=== PATIENT | female | born 1950 | race Caucasian/White ===

== ENCOUNTER → 2023-05-12 10:21 | Outpatient (REF) | payer MEDICARE, BC, SELFPAY | LOC: RAD 10:21 | PROVIDERS: ATTENDING PHYSICIAN Surgery; FAMILY PHYSICIAN Family Medicine | DX: K44.9 Diaphragmatic hernia without obstruction or gangrene (principal) | CPT/HCPCS: 74221; 74246 ==

== ENCOUNTER 2023-11-03 18:57 | Emergency (ER) | payer MEDICARE, BC, SELFPAY ==
[2023-11-03 18:59] VITALS: BP 162/80
[2023-11-03 20:00] VITALS: BP 148/48
--- NOTE | 2023-11-03 20:29 | ED.GENMED ---
History of Present Illness
General
Chief Complaint: Musculo-Skeletal Complaint
Source: patient
Exam Limitations: none
Time Seen by Provider: 11/03/23 20:06
Nursing documentation reviewed up to this point in time: agreed with
History of Present Illness
History of Present Illness:
73 y/o F with h/o afib s/p ablation, on eliquis, remote L leg dvt 30 yeras ago on eliquis, chronic leg edema in the left leg
has had posterior knee pain x 5 days ,no inciting injury and then today stepped onto a chair and felt a snap in the back of he knee
she has pain with weight bearing
says if she hunches over she can walk slowly
she is able to flex and extend
she has no appreciable swelling, numness/tingling/weakness
took motrin at 2 pm prior to the injury for the pain she was having over the past few days
Past History
Past History
ED Past Medical History: Arrthythmia, HTN and Hypercholesterolemia
ED Past Surgical History: Cardiac (ablation) and Other (hernia)
Social History
Tobacco: Non-smoker
Review of Systems
Review of Systems
Allergies reviewed?: Yes
All Other Systems: Not applicable
Phy Exam
Physical Exam
Physical Exam:
GENERAL: Alert , in no apparent distress
EYE: pupils equal and reactive
NECK: Supple
ENT: o/p clr, mmm.
CARDIAC: Regular rate and rhythm .
LUNGS: Clear breath sounds bilaterally, no acute respiratory distress, no wheezes/rales/rhonchi
ABDOMEN: Soft, without focal tenderness, no r/g, no cvat, normal bowel sounds
NEUROLOGICAL: Alert and oriented, no focal neuro deficits
SKIN: Warm and dry, skin intact.
MUSCULOSKELETAL: L leg is edematous, when compared to R side wih multiple varicosities
the knee does also look swollen, ? possibly effusion but nontender
able to flex 45 degrees, straight leg raise normal
neg ant/posterior drawer
no laxity with varus and valgus stress
calf is swollen but not tender
some PVD skin changes lower leg
normal pulse
hip normal
PSYCH: Normal and appropriate interaction.
Course
Orders/Labs/Results
Orders:
Orders
11/03/23 19:01
Knee, Left 4 or More Views [CR Knee - Left 4 Or More View*] Urgent
Comment:
Reason For Exam: pain
11/03/23 20:28
Acetaminophen [Tylenol] 650 mg PO NOW STA
Venous Doppler Lwr Ext Left [US Periph Venous LOWER Ext LT] Urgent
Comment: chronic swelling, dvt in the remote past, on eliqu
Reason For Exam: posterior knee pain, eval bakers cyst
Vital Signs
Initial and Last Documented VS:
Initial Vital Signs
Temp Pulse Resp BP Pulse Ox
98.9 F 66 18 162/80 99
11/03/23 18:59 11/03/23 18:59 11/03/23 18:59 11/03/23 18:59 11/03/23 18:59
Last Documented Vital Signs
Temp Pulse Resp BP Pulse Ox
98.9 F 66 18 157/64 99
11/03/23 18:59 11/03/23 18:59 11/03/23 18:59 11/03/23 22:33 11/03/23 18:59
MDM/Problems Addressed
Differential Diagnosis Includes:
knee sprain, patellar tendon injury, quad rupture, ligamenouts injury
MDM/Problems Addressed:
73 y/o F
has been having somd mild pain in the L knee for about 5 days and then tonight when she stood up on to a chair with that foot she felt a snap in the back of her knee
no appreciated swelilng but she alwyas has edema int he leg from chronic dvt
anticoagulated
no numbness/tingling/wekaness
pain is wosre with weight bearing
she feels better if she bends over at her hhip slightly she can walk on it
she has no trouble with straight leg raise in the bed, and no laxity on stress testing
xray indep reviewed, mild DJD
though compliiant with eliquis, suspect possible bakers cyst
US was neg for bakers cyst an dneg for dvt
will micah wrap
wlaker
f/u with ortho recommends
nsaids
*Critical Care Note
Total Time (30-74mins, 75-104mins- exclusive of procedures): Not Applicable
ED Attending Note
-
Portions of this chart may have been created with voice recognition software.� Occasional wrong word or��sound alike� substitutions may have occurred due to the inherent limitations of voice recognition software.
Discharge Plan
Departure
Patient Disposition: Home (Routine Discharge)
Date of Disposition: 11/03/23
Time of Disposition: 21:52
Patient with high blood pressure during this ER visit?: No
Condition: Fair
Covid-19: Not Applicable
Discharge Problem:
Acute knee pain
Instructions: Knee Pain (DC)
Prescriptions:
No Action
atorvastatin 40 MG tablet
40 mg PO QPM
lisinopril 10 MG tablet
10 mg PO DAILY
ranitidine HCl 150 MG capsule
150 mg PO BID
cholecalciferol (vitamin D3) [Vitamin D3] 1,000 UNIT capsule
1,000 unit PO DAILY
metoprolol tartrate 25 MG tablet
25 mg PO DAILY
jdcymzdy-srr-WK-lycopen-lutein [Centrum Silver] 1 EACH tablet
1 ea PO DAILY
omega 3-ylw-zpv-fish oil 1 EACH capsule
1,000 mg PO BID
turmeric root extract 500 MG capsule
500 mg PO BID
resveratrol 50 MG capsule
75 mg PO DAILY
apixaban [Eliquis] 5 MG tablet
5 mg PO BID
coenzyme Q10 50 MG tablet,chewable
100 mg PO BID
Black Current Oil Fackler 3-6
1,000 mg PO QPM
Sea [place]orn Fackler 7
500 mg PO BID
cephalexin 500 mg capsule
500 mg PO QID 10 Days Qty: 40 0RF
Referrals:
Louie Lora MD [Family Provider] -
Alex Fuentes MD [Active] - Follow up in 2-3 days ([facility])
Josue Hancock MD [Active] - Follow up in 5-7 days (ortho)
Activity Restrictions/Additional Instructions:
WE AREN'T SURE THE CAUSE OF YOUR KNEE PAIN
YOUR XRAYS SHOWED NO FRACTURES AND YOUR DOPPLER STUDY SHOWED NO DVT AND NO CYSTS
TRY MOTRIN EVERY 8 HOURS NEEDED
TYLENOL EVERY 6 HOURS NEEDED
ICE OFF AND ON
USE THE MICAH WRAP WHILE AWAKE, TAKE IT OFF AT NIGHT
WALKER TO HELP YOU
FOLLOW UP WITH ORTHOPEDICS FOR FURTHER WORK UP
Interventions
Interventions:
*Risk Screen - Suicide Last Done: 11/03/23 18:59
*General Assessment Last Done: 11/03/23 18:59
*Neglect/Abuse Screening Last Done: 11/03/23 18:59
*Nursing Disposition Last Done: 11/03/23 22:33
ED-Musculoskeletal Assessment Last Done: 11/03/23 20:04
Discharge Date and Time
Discharge Date/Time: 11/03/23 22:38
Print Language: MALAY
[2023-11-03] MEDS: TYLENOL 650 MG PO (21:34)
[2023-11-03 22:33] VITALS: BP 157/64
== END 2023-11-03 22:38 | disposition home or self-care (01) ==
LOC: EMR 18:57
PROVIDERS: EMERGENCY PHYSICIAN Emergency Medicine; FAMILY PHYSICIAN Family Medicine
DX: M25.562 Pain in left knee (principal); R60.0 Localized edema; R26.2 Difficulty in walking, not elsewhere classified; I48.91 Unspecified atrial fibrillation; I10 Essential (primary) hypertension; E78.00 Pure hypercholesterolemia, unspecified; I83.92 Asymptomatic varicose veins of left lower extremity; Z86.718 Personal history of other venous thrombosis and embolism; Z79.01 Long term (current) use of anticoagulants
CPT/HCPCS: 99284; 73564; 93971